=== PATIENT | female | born 1990 | race Caucasian/White ===

== ENCOUNTER 2017-01-25 09:42 | Emergency (ER) | payer MEDICAID ==
[~2017-01-25] VITALS: Ht 172.7 cm; Wt 102.3 kg
[~2017-01-25 09:42] MED LIST: CEPHALEXIN500 M1 PO; NO HOME MEDICATIONS; PRENATAL1 TA6 PO; TRISPRINTEC; VALTREX 50500 MG/TAB PO; ZOLOFT 100MG100 MG PO
[2017-01-25 09:44] VITALS: BP 109/71; PULSE 96; TEMP 99
[2017-01-25] MEDS ORDERED: PRENATAL1 TA7 PO (09:49)
[2017-01-25] MEDS ORDERED: ZYRTEC 10MG10 MG PO (09:49)
== END 2017-01-25 12:50 | disposition home or self-care (01) ==
LOC: COL.ER 09:42
DX: O99.89 Other specified diseases and conditions complicating pregnancy, childbirth and the puerperium (principal); M79.651 Pain in right thigh; Z86.72 Personal history of thrombophlebitis; O22.02 Varicose veins of lower extremity in pregnancy, second trimester; Z3A.15 15 weeks gestation of pregnancy

== ENCOUNTER 2017-06-30 18:20 | Outpatient (CLI) | payer MEDICAID, OTHER ==
[~2017-06-30] VITALS: Ht 172.7 cm; Wt 118.2 kg
[~2017-06-30 18:20] MED LIST changes: +PRENATAL1 TA7 PO; +ZYRTEC 10MG10 MG PO
[2017-06-30 18:34] VITALS: BP 121/82; PULSE 91; TEMP 97.9
[2017-06-30] MEDS ORDERED: ASPIRIN 81M81 MG/TA2 PO (18:41)
== END 2017-06-30 19:55 | disposition home or self-care (01) ==
LOC: LDRO 18:20
DX: O36.8130 Decreased fetal movements, third trimester, not applicable or unspecified (principal); Z3A.37 37 weeks gestation of pregnancy

== ENCOUNTER → 2019-12-30 | Outpatient (CLI) | payer OTHER ==
[~2019-12-30] MED LIST changes: +ASPIRIN 81M81 MG/TA2 PO; +IBU800 M1 PO; +PERCOCET 325 MG1 TA2 PO
== END ==
LOC: BHSO 10:44
DX: F31.81 Bipolar II disorder (principal)

== ENCOUNTER → 2020-01-28 | Outpatient (CLI) | payer OTHER | LOC: BHSO 11:37 | DX: F31.81 Bipolar II disorder (principal) | CPT/HCPCS: G0463 ==

== ENCOUNTER → 2020-03-31 | Outpatient (CLI) | payer OTHER | LOC: BHSO 10:54 | DX: F31.81 Bipolar II disorder (principal) | CPT/HCPCS: G0463 ==

== ENCOUNTER → 2020-06-01 | Outpatient (CLI) | payer OTHER | LOC: BHSO 11:36 | DX: F31.81 Bipolar II disorder (principal) | CPT/HCPCS: G0463 ==

== ENCOUNTER → 2021-04-24 | Outpatient (CLI) | payer OTHER | LOC: COL.RAD 07:42 | DX: E34.8 Other specified endocrine disorders (principal); R20.2 Paresthesia of skin | CPT/HCPCS: A9585 ==